=== PATIENT | male | born 1955 | race Caucasian/White ===

== ENCOUNTER 2017-01-26 18:46 | Inpatient (IN) | payer MEDICAID, OTHER ==
[~2017-01-26] VITALS: Ht 177.8 cm; Wt 88.0 kg
[2017-01-26] MEDS ORDERED: LISI-660 PO (18:52)
[2017-01-26] MEDS ORDERED: DULO20CA30 PO (18:52)
[2017-01-26 19:22] LABS: BASOPHILS # (AUTO) 0.05 K/uL (0.00-0.20); BASOPHILS % (AUTO) 0.5 % (0.0-2.0); EOSINOPHILS # (AUTO) 0.17 K/uL (0.00-0.70); EOSINOPHILS % (AUTO) 2.05 % (1.0-6.0); HEMATOCRIT 38.8 % (41-53); HEMOGLOBIN 12.8 g/dL (13.5-17.5); LYMPHOCYTES # (AUTO) 2.3 K/uL (1.0-4.8); LYMPHOCYTES % (AUTO) 27.2 % (22.0-44.0); MEAN CORPUSCULAR HEMOGLOBIN 30.7 pg (26.0-34.0); MEAN CORPUSCULAR HGB CONC 33.1 G/dL (31.0-37.0); MEAN CORPUSCULAR VOLUME 93 fL (80-100); MONOCYTES # (AUTO) 0.6 K/uL (0.1-1.0); MONOCYTES % (AUTO) 6.9 % (2.0-9.0); NEUTROPHILS # (AUTO) 5.4 K/uL (1.8-7.7); NEUTROPHILS % (AUTO) 63.4 % (40.0-70.0); PLATELET COUNT (AUTO) 211 K/uL (150-450); RED BLOOD CELL COUNT(AUTO) 4.17 MIL/uL (4.50-5.90); RED CELL DISTRIBUTION WIDTH 16.6 % (11.5-14.5); WHITE BLOOD COUNT (AUTO) 8.6 K/uL (4.5-11.0)
[2017-01-26 19:36] LABS: ANION GAP 12 mmol/L (8-16); CALCIUM, TOTAL 8.8 mg/dL (8.8-10.5); CARBON DIOXIDE 24 mmol/L (22-29); CHLORIDE 107 mmol/L (98-107); CREATININE 1.08 mg/dL (0.60-1.30); GLOMERULAR FILTR. RATE CALC > 60 mL/min (>60); SODIUM SERUM 143 mmol/L (136-145); UREA NITROGEN, BLOOD 15 mg/dL (7-18)
[2017-01-26 19:43] LABS: ALANINE AMINOTRANSFERASE 33 U/L (12-78); ALBUMIN 3.8 g/dL (3.4-5.0); ASPARTATE AMINOTRANSFERASE 26 U/L (15-37); BILIRUBIN,TOTAL 0.4 mg/dL (0.1-1.0); TOTAL PROTEIN, SERUM 6.9 g/dL (6.4-8.2)
[2017-01-26] MEDS ORDERED: ZOLPIDEM TARTRATE 10 MG TABLET PO PRN (21:15)
[2017-01-26 22:00] LABS: CHOL/HDL RATIO 2.9 (4.2-7.3)
[2017-01-26] MEDS: LORazepam 2 MG TABLET PO PRN (22:16)
[2017-01-26 22:49] LABS: APPEARANCE,URINE CLEAR (CLEAR); GLUCOSE, URINE (UA) NEGATIVE (NEGATIVE); KETONES,URINE NEGATIVE (NEGATIVE); LEUKOCYTE ESTERASE ,URINE NEGATIVE (NEGATIVE); OCCULT BLOOD,URINE NEGATIVE (NEGATIVE); PH,URINE 5.5 (5.0-8.0); PROTEIN,URINE NEGATIVE (NEGATIVE)
[2017-01-26 22:50] LABS: ADD UA MICROSCOPIC NO
[2017-01-26 23:57] VITALS: BP 148/82
[2017-01-27] MEDS ORDERED: PNEUMOCOCCAL VACCINE POLYVALENT 0.5 ML VIAL [PPSV23] IM ONE (01:15)
[2017-01-27] MEDS ORDERED: INFLUENZA VIRUS VACCINE QVS 2017-18 (3YR+)/PF 60 MCG/0.5 ML SYRINGE IM ONE (01:15)
[2017-01-27 08:13] VITALS: BP 139/77
[2017-01-27] MEDS: OLANZapine 5 MG RAPDIS TABLET PO PRN ×2 (09:41→16:58)
[2017-01-27] MEDS: LORazepam 2 MG TABLET PO PRN ×2 (09:41→13:39)
[2017-01-27] MEDS ORDERED: MAGNESIUM HYDROXIDE SUSPENSION 30 ML UDCUP PO PRN (13:30)
[2017-01-27] MEDS ORDERED: LOPERAMIDE HCL 2 MG CAPSULE PO PRN (13:30)
[2017-01-27] MEDS ORDERED: PROMETHAZINE HCL 25 MG TABLET PO PRN (13:30)
[2017-01-27] MEDS ORDERED: GuaiFENesin/D-METHORPHAN [SUGAR-FREE] 200-20MG/10 ML SYRUP UDCUP PO PRN (13:30)
[2017-01-27] MEDS ORDERED: HydrOXYzine PAMOATE 50 MG CAPSULE PO PRN (13:30)
[2017-01-27] MEDS ORDERED: MAG HYDROX/AL HYDROX/SIMETH ES 30 ML SUSPENSION UDCUP PO PRN (13:30)
[2017-01-27] MEDS ORDERED: TUBERCULIN, PURIFIED PROTEIN DERIVATIVE 5 TU/0.1 ML SYG ID ONE (13:30)
[2017-01-27 16:00] VITALS: BP 113/69
[2017-01-27] MEDS: THIAMINE HCL 100 MG TABLET PO SCH (16:58)
[2017-01-27] MEDS: GABAPENTIN 100 MG CAPSULE PO SCH (16:58)
[2017-01-27] MEDS ORDERED: DULoxetine HCL 30 MG CAPSULE PO SCH (21:00)
[2017-01-28 06:48] VITALS: BP 126/85
[2017-01-28] MEDS: MULTIVITAMINS WITH MINERALS, THERAPEUTIC TABLET PO SCH (08:50)
[2017-01-28] MEDS: FOLIC ACID 1 MG TABLET PO SCH (08:50)
[2017-01-28] MEDS: THIAMINE HCL 100 MG TABLET PO SCH ×2 (08:50→16:12)
[2017-01-28] MEDS: GABAPENTIN 100 MG CAPSULE PO SCH ×2 (08:50→12:35)
[2017-01-28] MEDS: LORazepam 2 MG TABLET PO PRN ×3 (08:56→20:01)
[2017-01-28 10:19] VITALS: BP 124/81
[2017-01-28 11:02] LABS: GLUCOSE COMMENT 1 Juice/Food/D50 Given; GLUCOSE,POINT OF CARE 119 MG/DL (70-110)
[2017-01-28] MEDS: DULoxetine HCL 60 MG CAPSULE PO SCH (16:12)
[2017-01-28 16:42] VITALS: BP 111/62
[2017-01-28] MEDS ORDERED: ARIP10TA8 PO (18:00)
[2017-01-28] MEDS ORDERED: DULO60CA44 PO (18:00)
[2017-01-28] MEDS ORDERED: ARIPiprazole 10 MG TABLET PO SCH (21:00)
[2017-01-29 01:46] VITALS: BP 140/79
[2017-01-29] MEDS: ACETAMINOPHEN 325 MG TABLET PO PRN ×2 (01:50→07:52)
[2017-01-29] MEDS: LORazepam 2 MG TABLET PO PRN (03:15)
[2017-01-29 08:00] VITALS: BP 161/80
[2017-01-29] MEDS: FOLIC ACID 1 MG TABLET PO SCH (08:02)
[2017-01-29] MEDS: THIAMINE HCL 100 MG TABLET PO SCH (08:02)
[2017-01-29] MEDS: MULTIVITAMINS WITH MINERALS, THERAPEUTIC TABLET PO SCH (08:02)
[2017-01-29] MEDS: DULoxetine HCL 60 MG CAPSULE PO SCH (08:03)
== END 2017-01-29 11:50 | disposition home or self-care (01) | DRG 754 ==
LOC: EMS 18:49 → AHU 23:44 → B2S 01-27 12:30
PROVIDERS: ADMIT Psychiatry & Neurology Psychiatry; ATTEND Psychiatry & Neurology Psychiatry
DX: F32.9 Major depressive disorder, single episode, unspecified (principal); F11.20 Opioid dependence, uncomplicated; I10 Essential (primary) hypertension; D64.9 Anemia, unspecified; G89.29 Other chronic pain; Z59.9 Problem related to housing and economic circumstances, unspecified; Z65.3 Problems related to other legal circumstances; Z81.8 Family history of other mental and behavioral disorders; Z87.442 Personal history of urinary calculi; Z87.891 Personal history of nicotine dependence; Z90.3 Acquired absence of stomach [part of]; Z90.49 Acquired absence of other specified parts of digestive tract; Z28.21 Immunization not carried out because of patient refusal
CPT/HCPCS: 82962; 84443; 99285; G0480